=== PATIENT | female | born 1955 | race Caucasian/White ===

== ENCOUNTER → 2016-06-27 | Outpatient (CLI) | payer OTHER ==
--- NOTE | 2016-06-27 16:13 | RADRPT ---
EXAM DATE/TIME: 06/27/2016 12:59 [place] COMPARISON: No previous studies available for comparison. INDICATIONS : Tremors for one year with a shuffling gait. DOSE: 5.0 mCi Ioflupane Iodine-123 in 2.5 ml total volume MEDICATION(S): 130 mg Potasium Iodine PO one hour prior to injection SPECT IMAGIN.5 hrs. IMAGNG: SPECT/CT imaging with fusion was performed. RADIATION DOSE: 30.27 CTDIvol (mGy) MEDICAL HISTORY : Stroke. SURGICAL HISTORY : None. ENCOUNTER: Initial ACUITY: >1 yr PAIN SCALE: 0/10 LOCATION: Head. TECHNIQUE: SPECT imaging of the brain was performed in sagittal, axial and coronal planes. Attenuation correctio n was performed with computed tomography and both the attenuation correction and non-attenuation marcell ected data sets were reviewed. FINDINGS: There is abnormal biodistribution of radionuclide with asymmetric decrease in activity within the put amen greater on the right. Normal caudate activity is noted bilaterally. CONCLUSION: Asymmetric decreased putaminal activity characteristic of Parkinson's disease or atyp ical parkinsonism syndrome. Nik Jung MD on June 27, 2016 at 16:04 Board Certified Radiologist. This report was verified electronically.
== END ==
LOC: HRAD 07:42
DX: R25.1 Tremor, unspecified (principal)
CPT/HCPCS: 78607; A9584